=== PATIENT | female | born 1975 | race African-American/Black ===

== ENCOUNTER → 2021-05-09 | Day surgery (SDC) | payer BC, OTHER ==
[~2021-05-09] MED LIST: CARAFATE1 GM PO; CELLCEPT250 MG PO; DOXAZOSIN MESYLA2 MG PO; FLONASE ALLERG9.9 ML INH; HYDRALAZINE HCL 20 MG/ML VIAL ONE; HYDROCHLOROTHIA25 MG PO; LABETALOL HCL 20 ML ONE; LOSARTAN POTAS100 MG PO; METFORMIN HCL500 MG PO; METOCLOPRAMIDE HCL 10 MG/2ML VIAL ONE; POVIDONE IODINE 0.05% 0.05 % ML PO ONE; PREDNISONE5 MG PO; PROPOFOL IV EMULSION 10 MG/ML 20 ML VIAL ONE; SIMVASTATIN40 MG PO; SINGULAIR10 MG PO; TACROLIMUS1 MG PO; TYLENOL ALLERGY PO
[2021-05-09 13:35] VITALS: BP 150/90
== END | disposition home or self-care (01) ==
LOC: OR 09:03
PROVIDERS: ATTEND Internal Medicine Gastroenterology
DX: K20.90 Esophagitis, unspecified without bleeding (principal); K29.70 Gastritis, unspecified, without bleeding; K21.9 Gastro-esophageal reflux disease without esophagitis; I10 Essential (primary) hypertension; E11.9 Type 2 diabetes mellitus without complications; E78.00 Pure hypercholesterolemia, unspecified; Z01.810 Encounter for preprocedural cardiovascular examination; Z68.35 Body mass index [BMI] 35.0-35.9, adult; Z88.8 Allergy status to other drugs, medicaments and biological substances; Z88.6 Allergy status to analgesic agent; Z88.1 Allergy status to other antibiotic agents; Z91.041 Radiographic dye allergy status; Z94.0 Kidney transplant status; Z79.84 Long term (current) use of oral hypoglycemic drugs; K29.80 Duodenitis without bleeding
CPT/HCPCS: 36415; 43239; 82948; 93005; J0360; J2765